=== PATIENT | female | born 1990 | race Caucasian/White ===

== ENCOUNTER 2016-06-22 03:25 | Emergency (ER) | payer OTHER ==
[~2016-06-22] VITALS: Ht 160 cm; Wt 83.7 kg
[~2016-06-22 03:25] MED LIST: BACT800T5 PO
[2016-06-22 03:32] VITALS: BP 107/69; PULSE 97; RESP 20; TEMP 98; O2SAT 100
[2016-06-22 04:51] LABS: POTASSIUM 3.4 MEQ/L (3.5-5.1)
[2016-06-22 04:54] LABS: BICARBONATE 25.6 MEQ/L (21.0-32.0)
[2016-06-22 05:24] VITALS: BP 132/67; PULSE 93; RESP 16; O2SAT 100
[2016-06-22 05:43] LABS: AUTOMATED NEUTROPHIL # 6.3 TH/MM3 (1.8-7.7); BASOPHIL # 0.1 TH/MM3 (0-0.2); BASOPHIL % 0.8 % (0.0-2.0); EOSINOPHIL # 0.1 TH/MM3 (0-0.4); EOSINOPHIL % 1.3 % (0.0-4.0); HEMATOCRIT 43.8 % (35.0-46.0); HEMO FLAGS DIFF FINAL; LYMPH % 28.8 % (9.0-44.0); MEAN CELL VOLUME 91.6 FL (80.0-100.0); MEAN CORPUSCULAR HEMOGLOBIN 30.4 PG (27.0-34.0); MEAN CORPUSCULAR HGB CONC 33.2 % (32.0-36.0); MONO % 8.7 % (0.0-8.0); NEUT % 60.4 % (16.0-70.0); PLATELET COUNT 311 TH/MM3 (150-450); RED BLOOD COUNT 4.78 MIL/MM3 (4.00-5.30); RED CELL DISTRIBUTION WIDTH 11.8 % (11.6-17.2); WHITE BLOOD COUNT 10.4 TH/MM3 (4.0-11.0)
--- NOTE | 2016-06-22 06:50 | RADHPO ---
EXAM DATE/TIME: 06/22/2016 06:05 [place] COMPARISON: No previous studies available for comparison. INDICATIONS : Pelvic bleeding and cramping. Retained products of conception. LAB(S): Beta-hC,770 MEDICAL HISTORY : . MRSA. SURGICAL HISTORY : None. ENCOUNTER: Initial ACUITY: 3 days PAIN SCORE: 4/10 LOCATION: Bilateral pelvis MEASUREMENTS: UTERUS: 9.2 x 6.7 x 5.2 cm ENDOMETRIAL STRIPE: 14 mm RIGHT OVARY: 2.3 x 2.2 x 1.8 cm LEFT OVARY: 2.9 x 1.8 x 1.5 cm FREE FLUID: Yes posterior cul de sac CROWN RUMP LENGTH: Nonvisualized = WKS DAYS FHR: Nonvisualized BPM FINDINGS: UTERUS: Myometrium is homogeneous. The endometrial stripe is thickened and heterogeneous in nature. No discre te parts observed. No gestational sac observed. Several small nabothian cysts. RIGHT OVARY: Ovary contains no mass or significant cystic lesion. LEFT OVARY: Ovary contains no mass or significant cystic lesion. MISCELLANEOUS: A trace amount of free fluid within the cul-de-sac. CONCLUSION: Thickened and heterogeneous endometrium. This may simply relate to retained blood products. No parts identified. Trace amount of free fluid. Fredis Fay Jr., MD on June 22, 2016 at 6:46 Board Certified Radiologist. This report was verified electronically.
[2016-06-22 07:22] VITALS: BP 120/69; PULSE 99; RESP 14; O2SAT 97
--- NOTE | 2016-06-22 07:22 | PD ---
HPI Chief Complaint: Related Problem Time Seen by Provider: 04:29 Travel History International Travel<30 days: No Contact w/Intl Traveler<30days: No Traveled to known affect area: No History of Present Illness HPI The patient is a 26-year-old female, G2, P1, A0 who started with vaginal bleeding 3 days ago. She suspects that she is and states she was saving up money to get an anyway. She was not planning to keep this child. Review of the old records reveals that she is AB+ from a previous delivery here. She denies any fever. PFSH Past Medical History Medical History: Denies Significant Hx Cancer: No Diminished Hearing: No Psychiatric: No Immunizations Current: Yes Seizures: No Thyroid Disease: No Ulcer: No Tetanus Vaccination: > 5 Years Influenza Vaccination: No ?: LMP: 04/13/16 : 2 Para: 1 Past Surgical History Surgical History: No Previous Surgery Other Surgery: No Social History Alcohol Use: Yes (RARELY) Tobacco Use: Yes (1 PPD ) Substance Use: No Allergies-Medications (Allergen,Severity, Reaction): Coded Allergies: Codeine (Verified Allergy, Intermediate, Nausea/Vomiting, 06/22/16) *MDRO Multi-Drug Resistant Organism (Verified Adverse Reaction, Unknown, ) MRSA (chest) - 08/2015 Reported Meds & Prescriptions Reported Meds & Active Scripts Active No Active Prescriptions or Reported Medications Review of Systems Except as stated in HPI: all other systems reviewed are Neg Physical Exam Narrative GENERAL: The patient is alert, oriented 3 in no apparent distress. The vital signs are normal. SKIN: Focused skin assessment warm/dry. HEAD: Atraumatic. Normocephalic. EYES: Pupils equal and round. No scleral icterus. No injection or drainage. ENT: No nasal bleeding or discharge. Mucous membranes pink and moist. NECK: Trachea midline. No JVD. CARDIOVASCULAR: Regular rate and rhythm. No murmur appreciated. RESPIRATORY: No accessory muscle use. Clear to auscultation. Breath sounds equal bilaterally. GASTROINTESTINAL: Abdomen soft, with slight tenderness to direct palpation in the midline suprapubic area, nondistended. Hepatic and splenic margins not palpable. MUSCULOSKELETAL: No obvious deformities. No clubbing. No cyanosis. No edema. NEUROLOGICAL: Awake and alert. No obvious cranial nerve deficits. Motor grossly within normal limits. Normal speech. PSYCHIATRIC: Appropriate mood and affect; insight and judgment normal. The patient is not particularly depressed. GENITOURINARY: Normal external genitalia without lesions or erythema. Vaginal vault with blood and no other drainage. Cervical os was open with clots and apparent products of conception coming through the os. Her is slight cervical motion tenderness. Uterus slightly tender and slightly enlarged, approximately 6 -8 weeks. Bilateral adnexa nontender without masses. Data Data Last Documented VS Vital Signs Date Time Temp Pulse Resp B/P Pulse Ox O2 Delivery O2 Flow Rate FiO2 06/22/16 05:24 93 16 132/67 100 Room Air 06/22/16 03:32 98.0 Orders Beta Hcg (Quant/Titer) (06/22/16 04:32) Basic Metabolic Panel (Bmp) (06/22/16 04:32) Complete Blood Count With Diff (06/22/16 05:36) Us Pelvis (Ques Pr/Ect)W Trans (06/22/16 ) Labs Laboratory Tests Test 06/22/16 04:38 White Blood Count 10.4 TH/MM3 Red Blood Count 4.78 MIL/MM3 Hemoglobin 14.5 GM/DL Hematocrit 43.8 % Mean Corpuscular Volume 91.6 FL Mean Corpuscular Hemoglobin 30.4 PG Mean Corpuscular Hemoglobin 33.2 % Concent Red Cell Distribution Width 11.8 % Platelet Count 311 TH/MM3 Mean Platelet Volume 8.5 FL Neutrophils (%) (Auto) 60.4 % Lymphocytes (%) (Auto) 28.8 % Monocytes (%) (Auto) 8.7 % Eosinophils (%) (Auto) 1.3 % Basophils (%) (Auto) 0.8 % Neutrophils # (Auto) 6.3 TH/MM3 Lymphocytes # (Auto) 3.0 TH/MM3 Monocytes # (Auto) 0.9 TH/MM3 Eosinophils # (Auto) 0.1 TH/MM3 Basophils # (Auto) 0.1 TH/MM3 CBC Comment DIFF FINAL Differential Comment Sodium Level 140 MEQ/L Potassium Level 3.4 MEQ/L Chloride Level 104 MEQ/L Carbon Dioxide Level 25.6 MEQ/L Anion Gap 10 MEQ/L Blood Urea Nitrogen 13 MG/DL Creatinine 0.81 MG/DL Estimat Glomerular Filtration 84 ML/MIN Rate Random Glucose 74 MG/DL Calcium Level 9.1 MG/DL Human Chorionic Gonadotropin, 3770 MIU/ML Quant [facility] Medical Decision Making Medical Screen Exam Complete: Yes Emergency Medical Condition: Yes Medical Record Reviewed: Yes Interpretation(s) The basic metabolic profile shows potassium 3.4 and GFR of 84 but is otherwise normal. The beta-hCG is 3770. The CBC is normal. The ultrasound pelvis shows a thickened and heterogenous endometrium which is likely simply retained blood products. No parts are identified and there is a trace amount of free fluid. Differential Diagnosis Retained products of conception, completed AB, incomplete AB, threatened AB, anemia, electrolyte disorder Narrative Course The patient appears to have a completed AB. She has no retention of parts and likely has only blood in the uterus. She should follow-up with a dental laboratory manager/long filler cigar roller machine as soon as possible. She is not anemic. It is now 0718 and the patient has very little pain and feels comfortable. Diagnosis Primary Impression: Complete Additional Instructions: As we discussed, follow-up with a CERTIFIED NURSING ATTENDANT physician. Call Thursday to set up this appointment. It is important that you be checked to make sure everything is okay. Infections can occur with this. It appears that she had a completed miscarriage. Med/Other Pt SpecificInfo: No Change to Meds Scripts No Active Prescriptions or Reported Meds Disposition: DISCHARGE HOME Condition: Stable Chris Rivera MD Jun 22, 2016 07:22
== END 2016-06-22 07:41 | disposition home or self-care (01) ==
LOC: PHED 03:25
DX: O03.9 Complete or unspecified spontaneous abortion without complication (principal); F17.210 Nicotine dependence, cigarettes, uncomplicated
CPT/HCPCS: 76700; 76817; 80048; 84702; 85025; 88305